=== PATIENT | male | born 1995 | race American Indian/Alaskan Native ===

== ENCOUNTER 2019-03-31 00:01 | Emergency (ER) | payer SELFPAY ==
--- NOTE | 2019-03-31 00:58 | XRay Report ---
Right ankle 3 views INDICATION: Right ankle pain following injury IMPRESSION: No fracture or subluxation of the right ankle is identified. Signer Name: Jim Diehl MD Signed: 03/31/2019 12:54 AM Workstation Name: [id number]
[2019-03-31] MEDS ORDERED: NORCO 5/325 PO ONE (05:10)
[2019-03-31] MEDS ORDERED: ZOFRAN ODT PO ONE (05:10)
[2019-03-31] MEDS ORDERED: IBUPROFEN PO ONE (05:10)
--- NOTE | 2019-03-31 05:16 | Emergency Department Report ---
ED Fall HPI - General Chief Complaint: Fall Stated Complaint: FELL AT WORK BACK AND RIGHT ANKLE PAIN Source: patient, EMS Mode of arrival: Wheelchair - History of Present Illness Initial Comments: Patient is a 24-year-old -Marshall[place] male with no past medical history who presents to the ED with complaint of acute onset persistent severe right ankle pain after she slipped, twisted his left ankle and fell down on the floor 6 hours ago at work. Patient states that the pain is worse with any active range of motion of the right ankle or bearing weight. Patient denies head or neck injury, syncope, chest pain, shortness of breath, neck pain, head injury, dizziness, seizures, back pain or loss of consciousness, and numbness and tingling or weakness of right ankle and foot. MD Complaint: fall, other (right ankle pain) -: Sudden, hour(s) (6) When Fall Occurred: 4-6 hours [employer] Fall Witnessed: yes, by bystander Place Fall Occurred: work Loss of Consciousness: none Prolonged Down Time?: no Symptoms Prior to Fall: none Location: other (right ankle) Location - Extremities: Right: Ankle Severity: severe Severity scale (0 -10): 8 Quality: sharp, aching Context: tripped/slipped Associated Symptoms: denies. denies: headache, neck pain, numbness, weakness, chest paint, shortness of breath, abdominal pain, hematuria, lightheaded, vertigo, confusion - Related Data Previous Rx's Medication Instructions Recorded Last Taken Type Acetaminophen/Codeine [Tylenol 1 tab PO Q6H PRN #10 tab 03/31/19 Unknown Rx /Codeine # 3 tab] Cyclobenzaprine [Flexeril] 10 mg PO Q8H PRN #15 tablet 03/31/19 Unknown Rx Ibuprofen [Motrin] 600 mg PO Q8H PRN #24 tablet 03/31/19 Unknown Rx Allergies Allergy/AdvReac Type Severity Reaction Status Date / Time No Known Allergies Allergy Verified 03/31/19 00:25 ED Review of Systems ROS: Stated complaint: FELL AT WORK BACK AND RIGHT ANKLE PAIN Other details as noted in HPI Constitutional: denies: chills, fever Eyes: denies: eye pain, eye discharge, vision change ENT: denies: ear pain, throat pain Respiratory: denies: cough, shortness of breath, wheezing Cardiovascular: denies: chest pain, palpitations Endocrine: no symptoms reported Gastrointestinal: denies: abdominal pain, nausea, diarrhea Genitourinary: denies: urgency, dysuria Musculoskeletal: arthralgia (right ankle pain), myalgia. denies: back pain, joint swelling Skin: denies: rash, lesions Neurological: denies: headache, weakness, paresthesias Psychiatric: denies: anxiety, depression Hematological/Lymphatic: denies: easy bleeding, easy bruising ED Past Medical Hx - Past Medical History Previous Medical History?: No - Surgical History Past Surgical History?: No - Social History Smoking Status: Current Every Day Smoker Substance Use Type: None - Medications Home Medications: Home Medications Medication Instructions Recorded Confirmed Last Taken Type Acetaminophen/Codeine [Tylenol 1 tab PO Q6H PRN #10 tab 03/31/19 Unknown Rx /Codeine # 3 tab] Cyclobenzaprine [Flexeril] 10 mg PO Q8H PRN #15 tablet 03/31/19 Unknown Rx Ibuprofen [Motrin] 600 mg PO Q8H PRN #24 tablet 03/31/19 Unknown Rx ED Physical Exam - General Limitations: Physical Limitation General appearance: alert, in no apparent distress - Head Head exam: Present: atraumatic, normocephalic, normal inspection - Eye Eye exam: Present: normal appearance, PERRL, EOMI Pupils: Present: normal accommodation - ENT ENT exam: Present: normal exam, normal orophraynx, mucous membranes moist, TM's normal bilaterally, normal external ear exam - Neck Neck exam: Present: normal inspection, full ROM - Respiratory Respiratory exam: Present: normal lung sounds bilaterally. Absent: respiratory distress, wheezes, rhonchi, stridor, chest wall tenderness - Cardiovascular Cardiovascular Exam: Present: regular rate, normal rhythm. Absent: normal heart sounds, systolic murmur, diastolic murmur, rubs, gallop - GI/Abdominal GI/Abdominal exam: Present: soft, normal bowel sounds. Absent: tenderness, guarding, rebound, hyperactive bowel sounds, mass - Rectal Rectal exam: Present: deferred - Extremities Exam Extremities exam: Present: normal inspection, full ROM, tenderness (Palpable right ankle tenderness), normal capillary refill - Back Exam Back exam: Present: normal inspection, full ROM. Absent: tenderness, CVA tenderness (R), muscle spasm, paraspinal tenderness, vertebral tenderness - Neurological Exam Neurological exam: Present: alert, oriented X3, CN II-XII intact, normal gait, reflexes normal - Psychiatric Psychiatric exam: Present: normal affect, normal mood - Skin Skin exam: Present: warm, dry, intact, normal color. Absent: rash ED Course Vital Signs 03/31/19 04:55 Temperature 97.7 F Pulse Rate 68 Respiratory 16 Rate Blood Pressure 126/89 O2 Sat by Pulse 100 Oximetry - Reevaluation(s) Reevaluation #1: 03/31/19 05:16 This is a 24-year-old male who presented to the ED with complaint of acute onset persistent right ankle pain after he twisted his right ankle at work and fell. In the ED, patient is alert and oriented 3 and is not in distress. Patient was treated for pain in the ED and right ankle x-ray shows no acute fractures or subluxations. Patient's right ankle was splinted with Gerson wrap and patient fitted with crutches, and was discharged home on pain medications and muscle relaxants and advised to follow-up with his primary care physician in 7-10 days for reevaluation or return to the ED immediately if symptoms get worse. ED Medical Decision Making - Radiology Data Radiology results: report reviewed, image reviewed Right ankle x-ray shows no acute fractures or subluxations. - Medical Decision Making This is a 24-year-old male who presented to the ED with complaint of acute onset persistent right ankle pain after he twisted his right ankle at work and fell. In the ED, patient is alert and oriented 3 and is not in distress. Patient was treated for pain in the ED and right ankle x-ray shows no acute fractures or subluxations. Patient's right ankle was splinted with Gerson wrap and patient fitted with crutches, and was discharged home on pain medications and muscle relaxants and advised to follow-up with his primary care physician in 7-10 days for reevaluation or return to the ED immediately if symptoms get worse. - Differential Diagnosis Muscle strain; ankle sprain; Ankle fracture Critical care attestation.: If time is entered above; I have spent that time in minutes in the direct care of this critically ill patient, excluding procedure time. ED Disposition Clinical Impression: Severe sprain of right ankle Qualifiers: Encounter type: initial encounter Qualified Code(s): S93.401A - Sprain of unspecified ligament of right ankle, initial encounter Muscle strain of right ankle Qualifiers: Encounter type: initial encounter Qualified Code(s): S96.911A - Strain of unspecified muscle and tendon at ankle and foot level, right foot, initial encounter Disposition: TO HOME OR SELFCARE Is pt being admited?: No Does the pt Need Aspirin: No Condition: Stable Instructions: Muscle Strain (ED) Additional Instructions: Take medication with food, drink plenty of fluids and follow-up with your primary care physician in 7-10 days for reevaluation. Return to the ED immediately if symptoms get worse. Prescriptions: Cyclobenzaprine [Flexeril] 10 mg PO Q8H PRN #15 tablet PRN Reason: Muscle Spasm Ibuprofen [Motrin] 600 mg PO Q8H PRN #24 tablet PRN Reason: Pain Acetaminophen/Codeine [Tylenol /Codeine # 3 tab] 1 tab PO Q6H PRN #10 tab PRN Reason: Pain , Severe (7-10) Referrals: EASTON RAPP MD [Primary Care Provider] - 3-5 Days Forms: Work/School Release Form(ED) Time of Disposition: 05:14 Print Language: GEORGIAN
[2019-03-31 06:09] VITALS: BP 120/78
== END 2019-03-31 06:09 | disposition home or self-care (01) ==
LOC: ED 00:01
DX: S93.401A Sprain of unspecified ligament of right ankle, initial encounter (principal); S96.911A Strain of unspecified muscle and tendon at ankle and foot level, right foot, initial encounter; F17.200 Nicotine dependence, unspecified, uncomplicated; W01.0XXA Fall on same level from slipping, tripping and stumbling without subsequent striking against object, initial encounter; Y93.89 Activity, other specified; Y92.89 Other specified places as the place of occurrence of the external cause; Y99.8 Other external cause status
CPT/HCPCS: Q0162

== ENCOUNTER 2019-04-08 10:50 | Emergency (ER) | payer SELFPAY ==
[2019-04-08 10:58] VITALS: BP 133/80
--- NOTE | 2019-04-08 11:11 | Emergency Department Report ---
ED Lower Extremity HPI - General Chief Complaint: Fall Stated Complaint: RT ANKLE TWIST/PAIN Time Seen by Provider: 04/08/19 11:03 Source: patient Mode of arrival: Ambulatory Limitations: No Limitations - History of Present Illness Initial Comments: Patient is 24 years old male with no significant past medical history. Patient was seen here 10 days ago for ankle sprain after a fall. Patient had an x-ray done and showed no fracture. Patient stated that the medicine is taking is not helping him. Patient denied any recent injury. MD Complaint: ankle injury - Related Data Previous Rx's Medication Instructions Recorded Last Taken Type Acetaminophen/Codeine [Tylenol 1 tab PO Q6H PRN #10 tab 03/31/19 Unknown Rx /Codeine # 3 tab] Cyclobenzaprine [Flexeril] 10 mg PO Q8H PRN #15 tablet 03/31/19 Unknown Rx Ibuprofen [Motrin] 600 mg PO Q8H PRN #24 tablet 03/31/19 Unknown Rx Allergies Allergy/AdvReac Type Severity Reaction Status Date / Time No Known Allergies Allergy Verified 03/31/19 00:25 ED Review of Systems ROS: Stated complaint: RT ANKLE TWIST/PAIN Other details as noted in HPI Comment: All other systems reviewed and negative Constitutional: denies: chills, fever Respiratory: denies: cough, shortness of breath Cardiovascular: denies: chest pain ED Past Medical Hx - Past Medical History Previous Medical History?: No - Surgical History Past Surgical History?: No - Social History Smoking Status: Never Smoker Substance Use Type: None - Medications Home Medications: Home Medications Medication Instructions Recorded Confirmed Last Taken Type Acetaminophen/Codeine [Tylenol 1 tab PO Q6H PRN #10 tab 03/31/19 Unknown Rx /Codeine # 3 tab] Cyclobenzaprine [Flexeril] 10 mg PO Q8H PRN #15 tablet 03/31/19 Unknown Rx Ibuprofen [Motrin] 600 mg PO Q8H PRN #24 tablet 03/31/19 Unknown Rx ED Physical Exam - General Limitations: No Limitations General appearance: alert, in no apparent distress - Head Head exam: Present: atraumatic, normocephalic, normal inspection - Eye Eye exam: Present: normal appearance - ENT ENT exam: Present: normal exam, normal orophraynx, mucous membranes moist - Respiratory Respiratory exam: Present: normal lung sounds bilaterally - Cardiovascular Cardiovascular Exam: Present: regular rate, normal heart sounds - GI/Abdominal GI/Abdominal exam: Present: soft. Absent: distended, tenderness - Expanded Lower Extremity Exam Right Hip exam: Present: normal inspection, full ROM Upper Leg exam: Present: normal inspection, full ROM Knee exam: Present: normal inspection, full ROM Lower Leg exam: Present: normal inspection, full ROM. Absent: tenderness, swelling Ankle exam: Present: normal inspection, full ROM. Absent: tenderness, swelling, abrasion, laceration, ecchymosis, deformity, crepidus, dislocation, erythema Neuro vascular tendon exam: Present: no vascular compromise ED Course Vital Signs 04/08/19 10:55 Temperature 98 F Pulse Rate 79 Respiratory 16 Rate Blood Pressure 133/80 [Left] O2 Sat by Pulse 96 Oximetry ED Lower Extremity MDM - Medical Decision Making Patient given a Naprosyn 500 mg twice a day for 7 days. Patient also given a referral to Dr. Mobley for further management. Critical care attestation.: If time is entered above; I have spent that time in minutes in the direct care of this critically ill patient, excluding procedure time. ED Disposition Clinical Impression: Right ankle sprain Disposition: DC-01 TO HOME OR SELFCARE Is pt being admited?: No Condition: Stable Instructions: Ankle Sprain (ED), Ankle Exercises (GEN) Referrals: JAMMIE MOBLEY MD [Staff Physician] - 3-5 Days
== END 2019-04-08 11:20 | disposition home or self-care (01) ==
LOC: ED 10:50
DX: S93.401A Sprain of unspecified ligament of right ankle, initial encounter (principal); Z79.899 Other long term (current) drug therapy; X58.XXXA Exposure to other specified factors, initial encounter; Y93.89 Activity, other specified; Y92.89 Other specified places as the place of occurrence of the external cause; Y99.8 Other external cause status
CPT/HCPCS: 99282

== ENCOUNTER 2019-04-20 09:55 | Emergency (ER) | payer SELFPAY ==
[2019-04-20] MEDS ORDERED: KETOROLAC 30 MG/1 ML INJ IV ONE (10:56)
[2019-04-20] MEDS ORDERED: ONDANSETRON 4 MG/2 ML INJ IV ONE (10:56)
[2019-04-20] MEDS ORDERED: SODIUM CHLORIDE 0.9% 1000 ML 1,000 ML IV ONE (10:56)
--- NOTE | 2019-04-20 11:38 | Cat Scan Report ---
CT head/brain wo con INDICATION / CLINICAL INFORMATION: 24 years Male; new onset headache. TECHNIQUE: Routine CT head without contrast. All CT scans at this location are performed using CT dos e reduction for ALARA by means of automated exposure control. COMPARISON: None. FINDINGS: BRAIN / INTRACRANIAL CONTENTS: The brain demonstrate appropriate attenuation. The ventricular system is within normal limits in size and configuration. There is no CT evidence of acute intracranial hemo rrhage or significant mass effect. ORBITS: No significant abnormality of visualized orbits. SINUSES / MASTOIDS: No significant abnormality the visualized paranasal sinuses or mastoid air cells. CRANIOCERVICAL JUNCTION: No significant abnormality. ADDITIONAL FINDINGS: None. IMPRESSION: 1. There is no CT evidence of acute intracranial process. Signer Name: Gildardo Arriola MD Signed: 04/20/2019 11:34 AM Workstation Name: [id number]
--- NOTE | 2019-04-20 11:40 | Emergency Department Report ---
ED Headache HPI - General Chief Complaint: Headache Stated Complaint: MIRGAINE/VOMITING Time Seen by Provider: 04/20/19 10:55 - History of Present Illness Initial Comments: Patient is a 24-year-old -Mongol[place] male who is presenting with 2 days of headache with nausea vomiting. Patient states the headache is frontal. He does not have a history of headaches. Patient states is a throbbing sensation is 8 out of 10 in severity. States the nausea and causes some crampy diffuse abdominal discomfort. Allergies/Adverse Reactions: Allergies No Known Allergies Allergy (Verified 03/31/19 00:25) Home Medications: Ambulatory Orders Acetaminophen/Codeine [Tylenol /Codeine # 3 tab] 1 tab PO Q6H PRN #10 tab 03/31/19 Cyclobenzaprine [Flexeril] 10 mg PO Q8H PRN #15 tablet 03/31/19 Ibuprofen [Motrin] 600 mg PO Q8H PRN #24 tablet 03/31/19 Naproxen [Naprosyn] 500 mg PO BID #14 tablet 04/08/19 Ibuprofen [Motrin 800 MG tab] 800 mg PO Q8HR PRN #10 tablet 04/20/19 Ondansetron [Zofran Odt] 4 mg PO Q8HR #10 tab.rapdis 04/20/19 ED Review of Systems ROS: Stated complaint: MIRGAINE/VOMITING Other details as noted in HPI Comment: All other systems reviewed and negative ED Past Medical Hx - Past Medical History Previous Medical History?: Yes Hx Headaches / Migraines: Yes - Surgical History Past Surgical History?: No - Social History Smoking Status: Current Every Day Smoker Substance Use Type: Alcohol - Medications Home Medications: Home Medications Medication Instructions Recorded Confirmed Last Taken Type Acetaminophen/Codeine [Tylenol 1 tab PO Q6H PRN #10 tab 03/31/19 Unknown Rx /Codeine # 3 tab] Cyclobenzaprine [Flexeril] 10 mg PO Q8H PRN #15 tablet 03/31/19 Unknown Rx Ibuprofen [Motrin] 600 mg PO Q8H PRN #24 tablet 03/31/19 Unknown Rx Naproxen [Naprosyn] 500 mg PO BID #14 tablet 04/08/19 Unknown Rx Ibuprofen [Motrin 800 MG tab] 800 mg PO Q8HR PRN #10 tablet 04/20/19 Unknown Rx Ondansetron [Zofran Odt] 4 mg PO Q8HR #10 tab.rapdis 04/20/19 Unknown Rx ED Physical Exam - General Limitations: No Limitations General appearance: alert, in no apparent distress - Head Head exam: Present: atraumatic, normocephalic - Eye Eye exam: Present: normal appearance - ENT ENT exam: Present: mucous membranes moist - Neck Neck exam: Present: normal inspection - Respiratory Respiratory exam: Present: normal lung sounds bilaterally. Absent: respiratory distress, wheezes, rales, rhonchi - Cardiovascular Cardiovascular Exam: Present: regular rate, normal rhythm. Absent: systolic murmur, diastolic murmur, rubs, gallop - GI/Abdominal GI/Abdominal exam: Present: soft, normal bowel sounds. Absent: distended, tenderness, guarding, rebound - Rectal Rectal exam: Present: deferred - Extremities Exam Extremities exam: Present: normal inspection - Back Exam Back exam: Present: normal inspection - Neurological Exam Neurological exam: Present: alert, oriented X3 - Psychiatric Psychiatric exam: Present: normal affect, normal mood - Skin Skin exam: Present: warm, dry, intact, normal color. Absent: rash ED Course Vital Signs 04/20/19 04/20/19 04/20/19 10:13 10:57 11:20 Temperature 98.5 F Pulse Rate 81 Respiratory 18 16 16 Rate Blood Pressure 125/65 O2 Sat by Pulse 97 Oximetry ED Medical Decision Making - Medical Decision Making Patient before his CT hated returned and he can be reassessed stated that he emergently had to leave the hospital because his son was injured at school. Patient's CT was reviewed by me and I do not see any gross blood at this time. Patient will be given neurology for follow-up. Critical care attestation.: If time is entered above; I have spent that time in minutes in the direct care of this critically ill patient, excluding procedure time. ED Disposition Clinical Impression: Acute headache Qualifiers: Headache type: unspecified Intractability: not intractable Qualified Code(s): R51 - Headache Disposition: DC-07 LEFT AGAINST MED ADVICE Is pt being admited?: No Does the pt Need Aspirin: No Condition: Stable Referrals: LURDES VINCENT MD [Staff Physician] - 3-5 Days Time of Disposition: 11:41
[2019-04-20 12:05] VITALS: BP 122/76
== END 2019-04-20 11:52 | disposition left against medical advice (07) ==
LOC: ED 09:55
DX: G43.909 Migraine, unspecified, not intractable, without status migrainosus (principal); F17.200 Nicotine dependence, unspecified, uncomplicated; Z79.899 Other long term (current) drug therapy
CPT/HCPCS: 70450; 96361; 96374; 96375; 99283; J1885; J2405; J7030

== ENCOUNTER 2019-06-26 05:02 | Emergency (ER) | payer SELFPAY ==
--- NOTE | 2019-06-26 06:36 | XRay Report ---
CHEST 2 VIEWS, 06/26/2019 6:30 AM INDICATION: Chest pain. Cough. COMPARISON: None FINDINGS: Support devices: None Heart: The heart is normal in size. Lungs/pleura: The lungs are clear of focal airspace disease or significant pleural effusion Additional findings: None IMPRESSION: 1. No evidence of acute cardiopulmonary process. Signer Name: Sara Preciado MD Signed: 06/26/2019 6:32 AM Workstation Name: [id number]
--- NOTE | 2019-06-26 09:31 | Emergency Department Report ---
- General Chief Complaint: Upper Respiratory Infection Stated Complaint: COUGH, CHEST PAIN Time Seen by Provider: 06/26/19 09:12 Source: patient Mode of arrival: Ambulatory Limitations: No Limitations - History of Present Illness Initial Comments: Patient is a 24-year-old male presents emergency room with complaints of a cough that began on 06/15/19. He has associated congestion, chest discomfort and back discomfort after frequent coughing, sore throat. He denies any fever, vomiting, diarrhea, ear pain, hemoptysis, any other symptoms. He denies any known sick contacts. He denies any past medical history or allergies medications. pt is a smoker. - Related Data Previous Rx's Medication Instructions Recorded Last Taken Type Acetaminophen/Codeine [Tylenol 1 tab PO Q6H PRN #10 tab 03/31/19 Unknown Rx /Codeine # 3 tab] Cyclobenzaprine [Flexeril] 10 mg PO Q8H PRN #15 tablet 03/31/19 Unknown Rx Ibuprofen [Motrin] 600 mg PO Q8H PRN #24 tablet 03/31/19 Unknown Rx Naproxen [Naprosyn] 500 mg PO BID #14 tablet 04/08/19 Unknown Rx Ibuprofen [Motrin 800 MG tab] 800 mg PO Q8HR PRN #10 tablet 04/20/19 Unknown Rx Ondansetron [Zofran Odt] 4 mg PO Q8HR #10 tab.rapdis 04/20/19 Unknown Rx ALBUTEROL Inhaler (OR & NICU) 2 puff IH QID PRN #8.5 gram 06/26/19 Unknown Rx [ProAir HFA Inhaler] Azithromycin [Zithromax TAB] 250 mg PO QDAY 5 Days #6 tablet 06/26/19 Unknown Rx Prednisone [predniSONE 10 mg 10 mg PO .TAPER #1 tab.ds.pk 06/26/19 Unknown Rx (6-Day Pack, 21 Tabs)] guaiFENesin [Robitussin] 10 ml PO Q6HR PRN #1 bottle 06/26/19 Unknown Rx Allergies Allergy/AdvReac Type Severity Reaction Status Date / Time No Known Allergies Allergy Verified 03/31/19 00:25 ED Review of Systems ROS: Stated complaint: COUGH, CHEST PAIN Other details as noted in HPI Comment: All other systems reviewed and negative ED Past Medical Hx - Past Medical History Previous Medical History?: Yes Hx Headaches / Migraines: Yes - Surgical History Past Surgical History?: No - Social History Smoking Status: Current Every Day Smoker Substance Use Type: None - Medications Home Medications: Home Medications Medication Instructions Recorded Confirmed Last Taken Type Acetaminophen/Codeine [Tylenol 1 tab PO Q6H PRN #10 tab 03/31/19 Unknown Rx /Codeine # 3 tab] Cyclobenzaprine [Flexeril] 10 mg PO Q8H PRN #15 tablet 03/31/19 Unknown Rx Ibuprofen [Motrin] 600 mg PO Q8H PRN #24 tablet 03/31/19 Unknown Rx Naproxen [Naprosyn] 500 mg PO BID #14 tablet 04/08/19 Unknown Rx Ibuprofen [Motrin 800 MG tab] 800 mg PO Q8HR PRN #10 tablet 04/20/19 Unknown Rx Ondansetron [Zofran Odt] 4 mg PO Q8HR #10 tab.rapdis 04/20/19 Unknown Rx ALBUTEROL Inhaler (OR & NICU) 2 puff IH QID PRN #8.5 gram 06/26/19 Unknown Rx [ProAir HFA Inhaler] Azithromycin [Zithromax TAB] 250 mg PO QDAY 5 Days #6 tablet 06/26/19 Unknown Rx Prednisone [predniSONE 10 mg 10 mg PO .TAPER #1 tab.ds.pk 06/26/19 Unknown Rx (6-Day Pack, 21 Tabs)] guaiFENesin [Robitussin] 10 ml PO Q6HR PRN #1 bottle 06/26/19 Unknown Rx ED Physical Exam - General Limitations: No Limitations General appearance: alert, in no apparent distress - Head Head exam: Present: atraumatic, normocephalic - Eye Eye exam: Present: normal appearance - ENT ENT exam: Present: normal orophraynx, mucous membranes moist, TM's normal bilaterally, normal external ear exam - Respiratory Respiratory exam: Present: normal lung sounds bilaterally. Absent: respiratory distress, wheezes, rales, rhonchi, stridor, chest wall tenderness, accessory muscle use, decreased breath sounds, prolonged expiratory - Cardiovascular Cardiovascular Exam: Present: regular rate, normal rhythm, normal heart sounds. Absent: systolic murmur, diastolic murmur, rubs, gallop - Neurological Exam Neurological exam: Present: alert, oriented X3 - Psychiatric Psychiatric exam: Present: normal affect, normal mood - Skin Skin exam: Present: warm, dry, intact ED Course Vital Signs 06/26/19 06/26/19 05:22 09:44 Temperature 98.3 F Pulse Rate 89 72 Respiratory 18 16 Rate Blood Pressure 116/65 Blood Pressure 120/68 [Left] O2 Sat by Pulse 96 96 Oximetry ED Medical Decision Making - Radiology Data Radiology results: report reviewed CHEST 2 VIEWS, 06/26/2019 6:30 AM INDICATION: Chest pain. Cough. COMPARISON: None FINDINGS: Support devices: None Heart: The heart is normal in size. Lungs/pleura: The lungs are clear of focal airspace disease or significant pleural effusion Additional findings: None IMPRESSION: 1. No evidence of acute cardiopulmonary process. Signer Name: Sara Preciado MD Signed: 06/26/2019 6:32 AM Workstation Name: [id number] Transcribed By: CHADD Dictated By: Sara Preciado MD Electronically Authenticated By: Sara Preciado MD Signed Date/Time: 06/26/19631 DD/ 0 TD/TT: - Medical Decision Making Patient is a 24-year-old male presents emergency room with complaints of a cough that began on 06/15/19. He has associated congestion, chest discomfort and back discomfort after frequent coughing, sore throat. He denies any fever, vomiting, diarrhea, ear pain, hemoptysis, any other symptoms. He denies any known sick contacts. He denies any past medical history or allergies medications. pt is a smoker. no abnormality on physical examination as recorded in chart. CXR 1. No evidence of acute cardiopulmonary process. PERC criteria negative for PE. pt s/sx consistent with acute bronchitis. Patient given prescription for antibiotics, steroids, albuterol inhaler, cough medication. advised pt to please take medication as prescribed. increase fluid intake over the next several days. Follow-up with a primary care doctor in the next 2-3 days for reexamination. Return to the emergency room for any new or worsening symptoms. - Differential Diagnosis URI, PNA, bronchitis, viral syndrome, allergies Critical care attestation.: If time is entered above; I have spent that time in minutes in the direct care of this critically ill patient, excluding procedure time. ED Disposition Clinical Impression: Acute bronchitis Qualifiers: Bronchitis organism: unspecified organism Qualified Code(s): J20.9 - Acute bronchitis, unspecified Disposition: DC-01 TO HOME OR SELFCARE Is pt being admited?: No Does the pt Need Aspirin: No Condition: Stable Instructions: Acute Bronchitis (ED) Additional Instructions: please take medication as prescribed. increase fluid intake over the next several days. Follow-up with a primary care doctor in the next 2-3 days for reexamination. Return to the emergency room for any new or worsening symptoms. Prescriptions: Prednisone [predniSONE 10 mg (6-Day Pack, 21 Tabs)] 10 mg PO .TAPER #1 tab.ds.pk ALBUTEROL Inhaler (OR & NICU) [ProAir HFA Inhaler] 2 puff IH QID PRN #8.5 gram PRN Reason: Shortness Of Breath guaiFENesin [Robitussin] 10 ml PO Q6HR PRN #1 bottle PRN Reason: cough Azithromycin [Zithromax TAB] 250 mg PO QDAY 5 Days #6 tablet Referrals: MELISSA CAMPOS MD [Staff Physician] - 2-3 Days [facility] [Outside] - 2-3 Days [facility] [Outside] - 2-3 Days Time of Disposition: 09:31 Print Language: SLOVENIAN
[2019-06-26 09:45] VITALS: BP 120/68
== END 2019-06-26 09:44 | disposition home or self-care (01) ==
LOC: ED 05:02
DX: J20.9 Acute bronchitis, unspecified (principal); F17.200 Nicotine dependence, unspecified, uncomplicated; G43.019 Migraine without aura, intractable, without status migrainosus; Z79.899 Other long term (current) drug therapy
CPT/HCPCS: 71046

== ENCOUNTER 2020-04-12 08:43 | Emergency (ER) | payer SELFPAY ==
[2020-04-12 08:57] VITALS: BP 122/75
--- NOTE | 2020-04-12 09:56 | XRay Report ---
CHEST 2 VIEWS INDICATION: cough, SOB,. COMPARISON: 06/26/2019 FINDINGS: Support devices: None. Heart: Within normal limits. Lungs: Patchy parenchymal process present left lower lobe. Pleura: No significant pleural effusion. No pneumothorax. Additional findings: None. IMPRESSION: 1. Left lower lobe pneumonia. Signer Name: Romario Olea MD Signed: 04/12/2020 9:51 AM Workstation Name: [id number]
== END 2020-04-12 10:54 | disposition left against medical advice (07) ==
LOC: ED 08:43
DX: R05 Cough (principal); R07.89 Other chest pain; Z53.21 Procedure and treatment not carried out due to patient leaving prior to being seen by health care provider
CPT/HCPCS: 71046